=== PATIENT | male | born 1980 | race African-American/Black ===

== ENCOUNTER 2017-04-06 16:42 | Emergency (ER) | payer MEDICAID ==
[~2017-04-06] VITALS: Ht 190.5 cm; Wt 69.0 kg
[2017-04-06 16:46] VITALS: Ht 190.5 cm; Wt 69.0 kg
[2017-04-06] MEDS ORDERED: HYDROCODONE/APAP (10/325) TAB PO ONE (17:30)
--- NOTE | 2017-04-06 17:53 | RADRPT ---
PROCEDURE: US right lower extremity veins. CLINICAL INDICATION: Right leg pain and swelling. TECHNIQUE: Multiple longitudinal and transverse images of the right lower extremity veins were obt ained with espinoza scale and color Doppler imaging. The common femoral vein, femoral vein, and poplitea l vein were evaluated. 2D grayscale measurements with compression sonography, pulsed Doppler, color Doppler, and pulsed Doppler with augmentation. COMPARISON: No prior studies are available for comparison. FINDINGS: There is acute deep venous thrombosis of the lower femoral vein and popliteal vein with lack of flow and lack of compressibility. The veins are dilated and contain echogenic thrombus. The right common femoral vein, upper femoral vein, and mid femoral vein are normal. IMPRESSION: 1. Acute deep venous thrombosis of the right lower femoral vein and popliteal vein. 2. Otherwise unremarkable study. 3. Referring healthcare provider aware of the findings. RPTAT: QQ .Farhad Richardson MD, MD Date Time Electronically viewed and signed by .Farhad Richardson MD, on 04/06/2017 17:53 .R/
[2017-04-06 18:21] LABS: ADD SCAN DIFF NO
[2017-04-06 18:23] LABS: ABNORMAL IP MESSAGE 1; HEMATOCRIT 38.1 % (42.0-52.0); HEMOGLOBIN 12.2 g/dl (14.0-18.0); MEAN CORPUSCULAR HEMOGLOBIN 28.6 pg (29.0-33.0); MEAN CORPUSCULAR VOLUME 89.4 fl (82.0-101.0); MEAN PLATELET VOLUME 11.5 fl (7.4-10.4); PLATELET COUNT 80 10^3/UL (140-415); RED BLOOD COUNT 4.26 10^6/ul (4.70-6.10); RED CELL DISTRIBUTION WIDTH 15.3 % (11.5-14.5); WHITE BLOOD COUNT 7.3 10^3/ul (4.8-10.8)
[2017-04-06 18:38] LABS: INR 1.04; PROTIME 13.6 Sec (12.2-14.2); PT RATIO 1.1
[2017-04-06 18:39] LABS: PARTIAL THROMBOPLASTIN TIME 26.2 Sec (25.0-35.0)
[2017-04-06 18:52] LABS: CK-MB 2.37 ng/ml (0.0-2.4)
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
[2017-04-06] MEDS ORDERED: APIXABAN 5 MG TABLET PO ONE (19:00)
[2017-04-06 19:03] LABS: MONOCYTE # 0.3 10^3/ul (0.3-0.9)
[2017-04-06 19:04] LABS: PLATELET ESTIMATE PLT APPEAR DECREASED
[2017-04-06 19:06] LABS: ALANINE AMINOTRANSFERASE 28 IU/L (13-69); ALBUMIN 4.1 g/dl (3.3-4.9); ALBUMIN/GLOBULIN RATIO 1.28; ALKALINE PHOSPHATASE 78 IU/L (42-121); ANION GAP 10 (8-16); ASPARTATE AMINO TRANSFERASE 29 IU/L (15-46); BILIRUBIN,INDIRECT 0.4 mg/dl (0-1.1); BILIRUBIN,TOTAL 0.4 mg/dl (0.2-1.3); BLOOD UREA NITROGEN 19 mg/dl (7-20); CALCIUM 9.6 mg/dl (8.4-10.2); CARBON DIOXIDE 27 mmol/L (21-31); CHLORIDE 107 mmol/L (97-110); CREATINE KINASE 460 IU/L (23-200); CREATININE 1.08 mg/dl (0.61-1.24); GLUCOSE 98 mg/dl (70-220); POTASSIUM 4.1 mmol/L (3.5-5.1); SODIUM 140 mmol/L (135-144); TOTAL PROTEIN 7.3 g/dl (6.1-8.1)
[2017-04-06 19:11] LABS: ADD UMIC YES; URINE BILIRUBIN (Dip) 1+ (NEGATIVE); URINE BLOOD (Dip) NEGATIVE (NEGATIVE); URINE COLOR LT. YELLOW (YELLOW); URINE GLUCOSE (Dip) NEGATIVE (NEGATIVE); URINE KETONES (Dip) TRACE (NEGATIVE); URINE LEUKOCYTE ESTERASE (Dip) 1+ (NEGATIVE); URINE NITRITE (Dip) NEGATIVE (NEGATIVE); URINE TOTAL PROTEIN (Dip) TRACE (NEGATIVE); URINE UROBILINOGEN (Dip) 0.2 E.U./dL (0.1-1.0)
[2017-04-06 19:16] LABS: ICTOTEST NEGATIVE (NEGATIVE)
[2017-04-06 19:17] LABS: MUCUS,URINE FEW
[2017-04-06 19:18] LABS: TROPONIN-I < 0.012 ng/ml (0.00-0.12)
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
--- NOTE | 2017-04-06 19:36 | RADRPT ---
PROCEDURE: XR Tibia and Fibula. CLINICAL INDICATION: Right tibia / fibula TECHNIQUE: 2 views of the right tibia and fibula were obtained. COMPARISON: No prior studies are available for comparison. FINDINGS: There is no radiographic evidence of acute fracture. Visualized joint spaces are preserved. The so ft tissues are grossly unremarkable. IMPRESSION: 1. No radiographic evidence of acute osseous abnormality of the visualized tibia / fibula. RPTAT: UU .Marcus Agrawal MD, MD Date Time Electronically viewed and signed by .Marcus Agarwal MD, on 04/06/2017 19:36 .K/
[2017-04-06] MEDS ORDERED: APIX5TAB PO (20:10)
[2017-04-06] MEDS ORDERED: HYDR-902 PO (20:10)
[2017-04-06] MEDS ORDERED: CIPR500T4 PO (20:11)
[2017-04-06 20:37] VITALS: BP 133/67; PULSE 78; RESP 20; TEMP 98.6
--- NOTE | 2017-04-07 09:28 | EN ---
Date/Time of Note Date/Time of Note DATE: 04/07/17 TIME: 09:27 ER Progress Note 37 year old male who presented on 04/06/17 with right lower ext DVT and was prescribed with Eliquis, pharmacy called and stated that it is not covered. I have changed the medication to Xarelto 15mg BID x 21 days, then 30mg QD which is covered. Patient will follow up with his primary care physician for further management. LINA LEMONS PA-C April 07, 2017 09:28
== END 2017-04-06 20:37 | disposition home or self-care (01) ==
LOC: FTE 16:42
DX: I82.401 Acute embolism and thrombosis of unspecified deep veins of right lower extremity (principal); Z79.01 Long term (current) use of anticoagulants
CPT/HCPCS: 36415; 71010; 73562; 73590; 73610; 80053; 81001; 82550; 82553; 84484; 85025; 85610; 85730; 93971; Z7502; Z7610

== ENCOUNTER 2017-04-09 09:09 | Emergency (ER) | payer MEDICAID ==
[~2017-04-09] VITALS: Ht 190.5 cm; Wt 71.5 kg
[~2017-04-09 09:09] MED LIST: APIX5TAB PO; CIPR500T4 PO; HYDR-902 PO
[2017-04-09 09:11] VITALS: Ht 190.5 cm; Wt 71.5 kg
[2017-04-09] MEDS ORDERED: IBUP-1542 PO (10:05)
[2017-04-09] MEDS ORDERED: TRAM50TA2 PO (10:06)
[2017-04-09 10:16] VITALS: BP 138/74; PULSE 86; RESP 20; TEMP 98.3
--- NOTE | 2017-04-09 10:18 | ERD ---
ER Documentation Chief Complaint Date/Time DATE: 04/09/17 TIME: 10:08 Chief Complaint was seen here x 3 days ago for dvt , needs pain meds HPI Patient is a 37-year-old male who presents to the emergency department for concerns of needing pain medication. Patient was seen here 3 days ago and diagnosed with a DVT in his right lower extremity. Patient reports taking Xarelto as well as ciprofloxacin. Patient does report some alleviation in the swelling and redness, however he states that he has been unable to handle the pain. Patient states current pain level is 10 out of 10. Patient denies taking any pain medication. Patient states that the pharmacy did not fill his prescription of [place]. Patient states that the pharmacy "kept the prescription. " Patient denies taking any OTC medication. Patient denies any fevers, chills. Patient denies any chest pain, shortness of breath, nausea, vomiting, dizziness, loss of consciousness. No recent surgeries, no recent travel. ROS All systems reviewed and are negative except as per history of present illness. Medications Home Meds Active Scripts Tramadol HCl (Tramadol HCl) 50 Mg Tablet, 50 MG PO Q4 Y for PAIN, #15 TAB Prov:SHEILA PIERSON PA-C 04/09/17 Ibuprofen* (Motrin*) 600 Mg Tab, 600 MG PO Q6, #30 TAB Prov:SHEILA PIERSON PA-C 04/09/17 Ciprofloxacin Hcl* (Ciprofloxacin Hcl*) 500 Mg Tablet, 500 MG PO BID for 10 Days , TAB Prov:TANIKA HAYNESNA C 04/06/17 Hydrocodone/Acetaminophen ([place] 10-325 Tablet) 1 Each Tablet, 1 EACH PO Q6, # 20 TAB Prov:GERSON HAYNES 04/06/17 Apixaban* (Eliquis*) 5 Mg Tablet, 10 MG PO BID for 7 Days, TAB Prov:GERSON HAYNES C 04/06/17 PMhx/Soc Medical and Surgical Hx: pt denies Medical Hx, pt denies Surgical Hx Hx Alcohol Use: No Hx Substance Use: No Hx Tobacco Use: No Physical Exam Vitals Vital Signs Date Time Temp Pulse Resp B/P Pulse Ox O2 Delivery O2 Flow Rate FiO2 04/09/17 10:16 98.3 86 20 138/74 98 Room Air 04/09/17 09:11 98.1 80 18 139/60 98 Physical Exam GENERAL: Well-developed, well-nourished male. Appears in no acute distress. HEAD: Normocephalic, atraumatic. EYES: Pupils are equally reactive bilaterally. EOMs grossly intact. No conjunctival erythema. ENT: Moist mucous membranes. No uvula deviation. No kissing tonsils. NECK: Supple. No meningismus. Normal range of motion of the neck. LUNG: Clear to auscultation bilaterally. No rhonchi, wheezing, rales or coarse breath sounds. HEART: Regular rate and rhythm. No murmurs, rubs or gallops. EXTREMITIES: Equal pulses bilaterally. No peripheral clubbing, cyanosis or edema. No unilateral leg swelling. NEUROLOGIC: Alert and oriented. Moving all four extremities without any difficulty. Normal speech. Steady gait. SKIN: Normal color. Warm and dry. No rashes or lesions. Right lower extremity: Full range of motion of the knee and ankle. Patient's calf is tender to palpation. Swelling noted. 2+ pulses in DP. Sensation to light touch intact. Patient able to dorsiflex without any pain. Procedures/MDM MEDICAL DECISION MAKING: Patient is a 37-year-old male with recent diagnosis of DVT. Patient is currently taking Xarelto as well as ciprofloxacin. Patient presented today for medication refill of pain medication. Patient stated that his prescription of [place] was held by the pharmacist. Vital signs were reviewed. Patient is afebrile. Patient was not hypoxic. Patient was hemodynamically stable. Patient does report did not show any recent narcotic medications filled per [facility] report. I called the pharmacy, [facility] on [address] at it [phone] spoke to pharmacy staff. Pharmacy staff stated that they were "holding the prescription given that patient required prior authorization." Advised the staff to discontinue Jefferson prescription. Patient will be given tramadol. Patient also be given a prescription for ibuprofen. Patient was advised to continue medication as prescribed for his DVT. Patient was advised to follow- up with his primary care physician in the next 1-2 days. At the time, patient presentation is most consistent DVT. Patient continued to denies CP, SOB, LOC. Low suspicion for PE. PRESCRIPTION: Tramadol, ibuprofen DISCHARGE: At this time, patient is stable for discharge and outpatient management. I have instructed the patient to follow-up with his/her primary care physician in 1-2 days. I have discussed with the patient the possibility of needing to see a specialist for further workup and imaging studies if symptoms persist. I have instructed the patient to promptly return to the ER for any new or worsening symptoms including increased pain, fever, nausea, vomiting, weakness or LOC. The patient and/or family expressed understanding of and agreement with this plan. All questions were answered. Home care instructions were provided. Departure Diagnosis: Primary Impression: Medication refill Condition: Stable Patient Instructions: Taking Medicine Safely Referrals: [facility] YOU HAVE RECEIVED A MEDICAL SCREENING EXAM AND THE RESULTS INDICATE THAT YOU DO NOT HAVE A CONDITION THAT REQUIRES URGENT TREATMENT IN THE EMERGENCY DEPARTMENT. FURTHER EVALUATION AND TREATMENT OF YOUR CONDITION CAN WAIT UNTIL YOU ARE SEEN IN YOUR DOCTORS OFFICE WITHIN THE NEXT 1-2 DAYS. IT IS YOUR RESPONSIBILITY TO MAKE AN APPOINTMENT FOR FOLOW-UP CARE. IF YOU HAVE A PRIMARY DOCTOR --you should call your primary doctor and schedule an appointment IF YOU DO NOT HAVE A PRIMARY DOCTOR YOU CAN CALL OUR PHYSICIAN REFERRAL HOTLINE AT IF YOU CAN NOT AFFORD TO SEE A PHYSICIAN YOU CAN CHOSE FROM THE FOLLOWING [facility] [address] [facility] [facility] [address] [facility]. [facility] [address] [facility] [facility] [address] [facility] [facility] [address] [facility]. [facility]. [address] [facility]. [facility] YOU HAVE RECEIVED A MEDICAL SCREENING EXAM AND THE RESULTS INDICATE THAT YOU DO NOT HAVE A CONDITION THAT REQUIRES URGENT TREATMENT IN THE EMERGENCY DEPARTMENT. FURTHER EVALUATION AND TREATMENT OF YOUR CONDITION CAN WAIT UNTIL YOU ARE SEEN IN YOUR DOCTORS OFFICE WITHIN THE NEXT 1-2 DAYS. IT IS YOUR RESPONSIBILITY TO MAKE AN APPOINTMENT FOR FOLOW-UP CARE. IF YOU HAVE A PRIMARY DOCTOR --you should call your primary doctor and schedule and appointment IF YOU DO NOT HAVE A PRIMARY DOCTOR YOU CAN CALL OUR PHYSICIAN REFERRAL HOTLINE AT . IF YOU CAN NOT AFFORD TO SEE A PHYSICIAN YOU CAN CHOSE FROM THE FOLLOWING COUNTS INCLUDE 234 BEDS AT THE [facility] INSTITUTIONS: [facility] [address] [place] [address] [facility] [address] [place] [address] [facility] [address] [place] [address] Additional Instructions: Call your primary care doctor TOMORROW for an appointment during the next 1-2 days.See the doctor sooner or return here if your condition worsens before your appointment time. Continue DVT medication. SHEILA PIERSON PA-C April 09, 2017 10:18
== END 2017-04-09 10:35 | disposition home or self-care (01) ==
LOC: FTE 09:09
DX: M79.604 Pain in right leg (principal)
CPT/HCPCS: 99283

== ENCOUNTER 2017-07-09 08:48 | Emergency (ER) | payer MEDICAID ==
[~2017-07-09] VITALS: Ht 190.5 cm; Wt 75.0 kg
[~2017-07-09 08:48] MED LIST changes: +IBUP-1542 PO; +TRAM50TA2 PO
[2017-07-09 08:50] VITALS: Ht 190.5 cm; Wt 75.0 kg
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
== END 2017-07-09 11:05 | disposition left against medical advice (07) ==
LOC: FTE 08:48
DX: M25.561 Pain in right knee (principal)
CPT/HCPCS: 99282